=== PATIENT | male | born 1985 | race Caucasian/White ===

== ENCOUNTER → 2017-12-24 11:41 | Outpatient (CLI) | payer OTHER, SELFPAY ==
[2017-12-24 14:00] LABS: Protein, Urine (Random) 8.6 mg/dL (<11.9); Protein:Creat Ratio 314 mg/g CRE (0-200)
[2017-12-24 14:52] LABS: Albumin, Serum 4.2 g/dL (3.2-5.0); BUN 17 mg/dL (7-18); Chloride 104 mmol/L (98-107); Cholesterol 181 mg/dL (200); Creatinine, Serum 1.21 mg/dL (0.70-1.30); EST Glomerular Filtration Rate 73 mL/min (>60); Est Glom Filt Rate - Afr Amer 88 mL/min (>60); Glucose 85 mg/dL (74-106); High Density Lipoprotein 64 mg/dL; Phosphorus 3.2 mg/dL (2.5-4.9); Potassium 4.6 mmol/L (3.5-5.1); Sodium Level 139 mmol/L (136-145); Triglycerides 53 mg/dL; Very Low Density Lipoprotein 11 mg/dL (5-40)
== END ==
PROVIDERS: Family Provider Family Medicine; PCP Family Medicine; Visit Provider Internal Medicine Nephrology
DX: N02.8 Recurrent and persistent hematuria with other morphologic changes (principal); R80.9 Proteinuria, unspecified; Z13.220 Encounter for screening for lipoid disorders
CPT/HCPCS: 36415; 80061; 80069; 82570; 84156

== ENCOUNTER → 2018-08-31 11:26 | Outpatient (CLI) | payer OTHER, SELFPAY ==
[2018-08-31 12:16] LABS: Protein:Creat Ratio 155 mg/g CRE (0-200)
[2018-08-31 12:17] LABS: Albumin, Serum 3.9 g/dL (3.2-5.0); BUN 16 mg/dL (7-18); BUN/Creat Ratio 13.7 RATIO (10-20); Calcium,Total 8.7 mg/dL (8.5-10.1); Chloride 104 mmol/L (98-107); Creatinine, Serum 1.17 mg/dL (0.70-1.30); EST Glomerular Filtration Rate 75 mL/min (>60); Est Glom Filt Rate - Afr Amer 91 mL/min (>60); Glucose 61 mg/dL (74-106); Phosphorus 3.8 mg/dL (2.5-4.9); Potassium 4.5 mmol/L (3.5-5.1); Sodium Level 140 mmol/L (136-145)
== END ==
PROVIDERS: Family Provider Family Medicine; PCP Family Medicine; Referring Provider Internal Medicine Nephrology; Visit Provider Internal Medicine Nephrology
DX: N02.8 Recurrent and persistent hematuria with other morphologic changes (principal)
CPT/HCPCS: 36415; 80069; 82570; 84156

== ENCOUNTER → 2018-11-11 15:14 | Outpatient (CLI) | payer OTHER, SELFPAY ==
[2018-11-11 19:19] LABS: Protein:Creat Ratio 132 mg/g CRE (0-200)
== END ==
PROVIDERS: Family Provider Family Medicine; PCP Family Medicine; Referring Provider Internal Medicine Nephrology; Visit Provider Internal Medicine Nephrology
DX: R80.9 Proteinuria, unspecified (principal)
CPT/HCPCS: 82570; 84156

== ENCOUNTER → 2019-01-09 09:01 | Outpatient (CLI) | payer OTHER, SELFPAY ==
[2019-01-09 10:39] LABS: Protein, Urine (Random) 19.7 mg/dL (<11.9); Protein:Creat Ratio 176 mg/g CRE (0-200)
== END ==
PROVIDERS: Family Provider Family Medicine; PCP Family Medicine; Referring Provider Internal Medicine Nephrology; Visit Provider Internal Medicine Nephrology
DX: R80.9 Proteinuria, unspecified (principal)
CPT/HCPCS: 82570; 84156

== ENCOUNTER → 2019-03-05 15:46 | Outpatient (CLI) | payer OTHER, SELFPAY ==
[2019-03-05 17:01] LABS: Albumin, Serum 3.8 g/dL (3.2-5.0); BUN 17 mg/dL (7-18); BUN/Creat Ratio 13.9 RATIO (10-20); Calcium,Total 8.7 mg/dL (8.5-10.1); Chloride 103 mmol/L (98-107); Creatinine, Serum 1.22 mg/dL (0.70-1.30); EST Glomerular Filtration Rate 72 mL/min (>60); Est Glom Filt Rate - Afr Amer 87 mL/min (>60); Glucose 104 mg/dL (74-106); Phosphorus 4.6 mg/dL (2.5-4.9); Potassium 3.7 mmol/L (3.5-5.1); Sodium Level 138 mmol/L (136-145)
[2019-03-05 17:03] LABS: Protein, Urine (Random) 10.7 mg/dL (<11.9); Protein:Creat Ratio 207 mg/g CRE (0-200)
== END ==
PROVIDERS: Family Provider Family Medicine; PCP Family Medicine; Visit Provider Internal Medicine Nephrology
DX: N02.8 Recurrent and persistent hematuria with other morphologic changes (principal); R80.9 Proteinuria, unspecified
CPT/HCPCS: 36415; 80069; 82570; 84156

== ENCOUNTER 2019-07-25 13:20 | Outpatient (RCR) | payer OTHER, SELFPAY ==
[2019-07-25 14:37] LABS: Protein, Urine (Random) 43.7 mg/dL (<11.9); Protein:Creat Ratio 412 mg/g CRE (0-200)
== END 2019-07-25 18:00 | disposition home or self-care (01) ==
LOC: LAB 13:20
PROVIDERS: Family Provider Family Medicine; PCP Family Medicine; Referring Provider Internal Medicine Nephrology; Visit Provider Internal Medicine Nephrology
DX: N02.8 Recurrent and persistent hematuria with other morphologic changes (principal)
CPT/HCPCS: 82570; 84156

== ENCOUNTER → 2019-12-11 14:36 | Outpatient (CLI) | payer OTHER, SELFPAY ==
[2019-12-11 15:32] LABS: Albumin, Serum 4.1 g/dL (3.2-5.0); BUN 14 mg/dL (7-18); BUN/Creat Ratio 12.5 RATIO (10-20); Chloride 101 mmol/L (98-107); Creatinine, Serum 1.12 mg/dL (0.70-1.30); EST Glomerular Filtration Rate 79 mL/min (>60); Est Glom Filt Rate - Afr Amer 95 mL/min (>60); Glucose 85 mg/dL (74-106); Phosphorus 3.5 mg/dL (2.5-4.9); Potassium 4.3 mmol/L (3.5-5.1); Sodium Level 137 mmol/L (136-145)
== END ==
LOC: LAB.FUTURE 14:38 → LAB 12-12 06:45
PROVIDERS: PCP Family Medicine; Referring Provider Internal Medicine Nephrology; Visit Provider Internal Medicine Nephrology
DX: N02.8 Recurrent and persistent hematuria with other morphologic changes (principal)
CPT/HCPCS: 36415; 80069

== ENCOUNTER → 2019-12-16 16:48 | Outpatient (CLI) | payer OTHER, SELFPAY ==
[2019-12-16 17:31] LABS: Protein:Creat Ratio 252 mg/g CRE (0-200)
== END ==
PROVIDERS: PCP Family Medicine; Referring Provider Internal Medicine Nephrology; Visit Provider Internal Medicine Nephrology
DX: N02.8 Recurrent and persistent hematuria with other morphologic changes (principal)
CPT/HCPCS: 82570; 84156

== ENCOUNTER → 2020-07-13 13:18 | Outpatient (CLI) | payer OTHER, SELFPAY ==
[2020-07-13 14:10] LABS: Protein, Urine (Random) 7.3 mg/dL (<11.9); Protein:Creat Ratio 160 mg/g CRE (0-200)
== END ==
PROVIDERS: PCP Family Medicine; Referring Provider Internal Medicine Nephrology; Visit Provider Internal Medicine Nephrology
DX: N02.8 Recurrent and persistent hematuria with other morphologic changes (principal)
CPT/HCPCS: 82570; 84156

== ENCOUNTER → 2021-01-21 | Outpatient (CLI) | payer OTHER, SELFPAY ==
[2021-01-21 05:53] VITALS: BMI 24.0
--- NOTE | 2021-01-21 14:30 | VAS_PTH ---
PATIENT: TEJAS PETER LOC: [facility] U#:[id number] AGE/SX: 35/M ROOM: RE01/21/[address]: Dr. Drew Umanzor MD : 1985 BED: DIS: 01/21/2021 SPEC #: [id number] RECD: 01/21/21 15:33 STATUS: CATARINO REMiesha #: [id number] LISA: 01/21/21 14:[address]: Drew Umanzor DEPT: SURGICAL PATHOLOGY RECD BY: Maria Esther Gomez ENTERED: 01/24/21 08:54 SP TYPE: VAS OTHR DR: Dr. Sandip Olson MD Tissues: A - Vas deferens, NOS B - Vas deferens, NOS Procedures: Surgery Specimen Level II HEADER OPERATION: Bilateral partial vasectomy PRE-OP DIAGNOSIS: Sterilization TISSUE SUBMITTED: A ? Right vas deferens, B ? Left vas deferens MICROSCOPIC DIAGNOSIS A. Right vas deferens, partial vasectomy: Completely transected segment of vas deferens, no pathologic diagnosis. B. Left vas deferens, partial vasectomy: Completely transected segment of vas deferens, no pathologic diagnosis. MARTA:ad 01/25/2021 MICROSCOPIC DESCRIPTION Slides are reviewed. GROSS DESCRIPTION A - Received is one container designated right vas deferens. The specimen consists of a tubular segment of still soft tissue measuring 1.5 cm in length and 0.2 cm in diameter. The entire specimen is submitted in one cassette. It will be sectioned at the time of embedding. B - Received is one container designated left vas deferens. The specimen consists of a tubular segment of still soft tissue measuring 0.8 cm in length and 0.2 cm in diameter. The entire specimen is submitted in one cassette. It will be sectioned at the time of embedding. / MARTA:ad 01/24/21 TC:4 CPT: 11701 x2
== END | disposition home or self-care (01) ==
LOC: LABSPEC 16:08
PROVIDERS: PCP Family Medicine; Referring Provider Surgery; Visit Provider Surgery
DX: Z30.2 Encounter for sterilization (principal)
CPT/HCPCS: 88302

== ENCOUNTER → 2021-03-01 | Outpatient (CLI) | payer OTHER, SELFPAY ==
[2021-01-21 05:53] VITALS: BMI 24.0
[2021-03-02 13:47] LABS: Semen Analysis Post Vas REVIEWED
== END | disposition home or self-care (01) ==
PROVIDERS: PCP Family Medicine; Referring Provider Surgery; Visit Provider Surgery
DX: Z30.2 Encounter for sterilization (principal)
CPT/HCPCS: 89321

== ENCOUNTER → 2021-03-31 | Outpatient (CLI) | payer OTHER, SELFPAY ==
[2021-01-21 05:53] VITALS: BMI 24.0
[2021-04-01 12:28] LABS: Semen Analysis Post Vas ABSENT
== END | disposition home or self-care (01) ==
LOC: LABSPEC 07:53
PROVIDERS: PCP Family Medicine; Visit Provider Surgery
DX: Z30.2 Encounter for sterilization (principal)
CPT/HCPCS: 89321

== ENCOUNTER → 2021-05-06 | Outpatient (CLI) | payer OTHER, SELFPAY ==
[2021-05-09 12:33] LABS: Semen Analysis Post Vas REVIEWED
== END | disposition home or self-care (01) ==
LOC: LABSPEC 09:03
PROVIDERS: PCP Family Medicine; Visit Provider Surgery
DX: Z30.2 Encounter for sterilization (principal)
CPT/HCPCS: 89321

== ENCOUNTER 2021-10-10 12:59 | Outpatient (CLI) | payer BC, SELFPAY ==
[2021-10-10 13:53] LABS: Protein, Urine (Random) 18.5 mg/dL (<11.9); Protein:Creat Ratio 272 mg/g CRE (0-200)
[2021-10-10 14:00] LABS: BUN 17 mg/dL (7-18); BUN/Creat Ratio 15.2 RATIO (10-20); Calcium,Total 8.8 mg/dL (8.5-10.1); Chloride 101 mmol/L (98-107); Creatinine, Serum 1.12 mg/dL (0.70-1.30); EST Glomerular Filtration Rate 78 mL/min (>60); Est Glom Filt Rate - Afr Amer 94 mL/min (>60); Glucose 96 mg/dL (74-106); Phosphorus 3.1 mg/dL (2.5-4.9); Potassium 4.1 mmol/L (3.5-5.1); Sodium Level 138 mmol/L (136-145)
== END 2021-10-10 23:59 | disposition home or self-care (01) ==
LOC: LAB 13:04
PROVIDERS: PCP Family Medicine; Referring Provider Internal Medicine Nephrology; Visit Provider Internal Medicine Nephrology
DX: N02.8 Recurrent and persistent hematuria with other morphologic changes (principal)
CPT/HCPCS: 36415; 80069; 82570; 84156

== ENCOUNTER → 2022-11-04 | Outpatient (CLI) | payer BC, SELFPAY ==
[2022-11-04 12:27] LABS: Protein, Urine (Random) 12.4 mg/dL (<11.9); Protein:Creat Ratio 111 mg/g CRE (0-200)
[2022-11-04 13:00] LABS: Albumin, Serum 3.7 g/dL (3.2-5.0); BUN 18 mg/dL (7-18); BUN/Creat Ratio 14.2 RATIO (10-20); Calcium,Total 8.9 mg/dL (8.5-10.1); Chloride 102 mmol/L (98-107); Creatinine, Serum 1.27 mg/dL (0.70-1.30); EST Glomerular Filtration Rate 67 mL/min (>60); Est Glom Filt Rate - Afr Amer 81 mL/min (>60); Glucose 95 mg/dL (74-106); Phosphorus 2.7 mg/dL (2.5-4.9); Sodium Level 141 mmol/L (136-145)
== END | disposition home or self-care (01) ==
LOC: LAB 11:46
PROVIDERS: PCP Family Medicine; Visit Provider Internal Medicine Nephrology
DX: N02.8 Recurrent and persistent hematuria with other morphologic changes (principal); R80.9 Proteinuria, unspecified
CPT/HCPCS: 36415; 80069; 82570; 84156

== ENCOUNTER → 2023-09-08 | Outpatient (CLI) | payer OTHER, SELFPAY ==
[2023-09-08 11:33] LABS: Cholesterol 228 mg/dL (200); High Density Lipoprotein 71 mg/dL; Triglycerides 61 mg/dL; Very Low Density Lipoprotein 12 mg/dL (5-40)
== END | disposition home or self-care (01) ==
PROVIDERS: PCP Family Medicine; Referring Provider Family Medicine; Visit Provider Family Medicine
DX: Z13.220 Encounter for screening for lipoid disorders (principal)
CPT/HCPCS: 36415; 80061

== ENCOUNTER → 2023-10-11 | Outpatient (CLI) | payer OTHER, SELFPAY ==
[2023-10-11 07:52] LABS: Protein, Urine (Random) 39.1 mg/dL (<11.9); Protein:Creat Ratio 152 mg/g CRE (0-200)
[2023-10-11 07:55] LABS: Albumin, Serum 3.8 g/dL (3.2-5.0); BUN 16 mg/dL (7-18); BUN/Creat Ratio 12.5 RATIO (10-20); Calcium,Total 8.9 mg/dL (8.5-10.1); Chloride 109 mmol/L (98-107); Creatinine, Serum 1.28 mg/dL (0.70-1.30); EST Glomerular Filtration Rate 66 mL/min (>60); Est Glom Filt Rate - Afr Amer 80 mL/min (>60); Glucose 97 mg/dL (74-106); Potassium 4.2 mmol/L (3.5-5.1); Sodium Level 140 mmol/L (136-145)
== END | disposition home or self-care (01) ==
LOC: LAB 07:12
PROVIDERS: PCP Family Medicine; Referring Provider Internal Medicine Nephrology; Visit Provider Internal Medicine Nephrology
DX: N02.8 Recurrent and persistent hematuria with other morphologic changes (principal); R80.9 Proteinuria, unspecified
CPT/HCPCS: 36415; 80069; 82570; 84156

== ENCOUNTER → 2023-12-11 | Outpatient (CLI) | payer OTHER, SELFPAY ==
[2023-12-11 09:36] LABS: Protein, Urine (Random) 22.2 mg/dL (<11.9); Protein:Creat Ratio 116 mg/g CRE (0-200)
== END | disposition home or self-care (01) ==
LOC: LAB 07:32
PROVIDERS: PCP Family Medicine; Referring Provider Internal Medicine Nephrology; Visit Provider Internal Medicine Nephrology
DX: R80.9 Proteinuria, unspecified (principal)
CPT/HCPCS: 82570; 84156

== ENCOUNTER → 2024-02-12 | Outpatient (CLI) | payer OTHER, SELFPAY ==
--- NOTE | 2024-02-12 17:09 | RAD_ITS ---
STUDY: X-RAY - LEFT HAND, ATTENTION THIRD FINGER REASON FOR EXAM: Male, 38 years old. Injury DIP of 3rd left finger. TECHNIQUE: 3 views of the left third finger were obtained. COMPARISON: None. FINDINGS: Normal metacarpal head. Normal metacarpophalangeal joint. Normal proximal phalanx. Normal middle phalanx. There is a comminuted fracture of the tuft of the third distal phalanx. Normal proximal interphalangeal joint. Normal distal interphalangeal joint. RAD/Finger(s) Min 2 Views IMPRESSION: Comminuted fracture of the tuft of the third distal phalanx. Electronically Signed: Chang Thurman MD at 12:19 EDT ,
== END | disposition home or self-care (01) ==
LOC: MTRAD 16:45
PROVIDERS: PCP Family Medicine; Referring Provider Family Medicine; Visit Provider Family Medicine
DX: M79.645 Pain in left finger(s) (principal)
CPT/HCPCS: 73140

== ENCOUNTER 2024-02-15 16:35 | Outpatient (RCR) | payer OTHER, SELFPAY ==
[2024-02-15 17:26] LABS: Protein, Urine (Random) 18.1 mg/dL (<11.9); Protein:Creat Ratio 233 mg/g CRE (0-200)
== END 2024-02-15 18:00 | disposition home or self-care (01) ==
LOC: LAB 16:35
PROVIDERS: PCP Family Medicine; Referring Provider Internal Medicine Nephrology; Visit Provider Internal Medicine Nephrology
DX: R80.9 Proteinuria, unspecified (principal)
CPT/HCPCS: 82570; 84156

== ENCOUNTER → 2024-03-27 | Outpatient (CLI) | payer OTHER, SELFPAY ==
--- NOTE | 2024-03-27 09:37 | RAD_ITS ---
EXAM: XR LUMBOSACRAL SPINE, 4 OR 5 VIEWS CLINICAL INDICATION: R HIP/BUTTOCK PAIN -- COPY DR LEN ALEXANDRE TECHNIQUE: Frontal, lateral and bilateral oblique views of the lumbar spine. COMPARISON: No relevant prior studies available. FINDINGS: VERTEBRAE: Mild dextroscoliosis. Preserved vertebral body height. No fracture. No spondylolisthesis. No significant facet arthropathy. DISC SPACES: No acute findings. Disc spaces are maintained. GASTROINTESTINAL TRACT: Unremarkable as visualized. Included bowel gas pattern is non-obstructive. RAD/L/S Spine Min 4 Views IMPRESSION: Mild dextroscoliosis. No acute abnormality. Electronically Signed: Daniel Gage MD at 2:59 EDT ,
== END | disposition home or self-care (01) ==
PROVIDERS: PCP Family Medicine; Referring Provider Family Medicine; Visit Provider Family Medicine
DX: M54.50 Low back pain, unspecified (principal)
CPT/HCPCS: 72110

== ENCOUNTER 2024-04-14 13:02 | Outpatient (RCR) | payer OTHER, SELFPAY ==
[2024-04-14 13:43] LABS: Protein:Creat Ratio 230 mg/g CRE (0-200)
== END 2024-04-14 18:00 | disposition home or self-care (01) ==
LOC: LAB 13:02
PROVIDERS: PCP Family Medicine; Referring Provider Internal Medicine Nephrology; Visit Provider Internal Medicine Nephrology
DX: R80.9 Proteinuria, unspecified (principal)
CPT/HCPCS: 82570; 84156

== ENCOUNTER 2024-05-08 23:46 | Emergency (ER) | payer OTHER, SELFPAY ==
[2024-05-08 23:46] VITALS: BP 125/65; PULSE 80; RESP 18; TEMP 36.7; O2SAT 98; BMI 23.7
--- NOTE | 2024-05-09 00:34 | EDS_ITS ---
HPI History of Present Illness Chief Complaint: Back Informant: patient and spouse/S.O. Narrative Narrative: Patient is a 38-year-old male with past medical history of depression and IgA nephropathy. He states he has been dealing with right sided low back pain over the past month. He denies any trauma or excessive activity he denies any dysuria or hematuria he denies any loss of bowel or bladder control or IV drug use. He reports that he has an appointment with an orthopedic surgeon in the next 1 to 2 days but this morning after getting dressed had increased pain to the right low back that radiates down the right leg. He states he has been taking his muscle relaxers and xrvd-spt-vbcuvat medications without any symptom improvement and secondary to the persistent pain comes in for evaluation [facility] Medical History Encounter for sterilization Home Medications ?Medication ?Instructions ?Recorded ?Last Taken ?Type escitalopram oxalate 10 mg tablet 10 mg PO DAILY 12/20/20 Unknown History levetiracetam 500 mg tablet 500 mg PO BID 12/20/20 Unknown History lisinopril 20 mg tablet 20 mg PO DAILY 12/20/20 Unknown History losartan 50 mg tablet 50 mg PO DAILY 12/20/20 Unknown History tizanidine 4 mg tablet 4 mg PO Q8H PRN PRN muscle spasm 05/08/24 Unknown History gabapentin 300 mg capsule 300 mg PO TID 30 days #90 caps 05/09/24 Unknown Rx oxycodone-acetaminophen 5 mg-325 1 tab PO Q6H PRN pain 3 days #12 05/09/24 Unknown Rx mg tablet (Percocet) tabs Allergy/AdvReac Type Severity Reaction Status Date / Time No Known Allergies Allergy Verified 05/08/24 23:48 Surgical History History of splenectomy Hx of craniotomy Social History Smoking Status: Never smoker ROS ROS ED Constitutional Constitutional ED: Denies chills or fever(s) ENT ENT ED: Denies sore throat Cardiovascular Cardiovascular: Denies chest pain Respiratory/Chest Respiratory/Chest: Denies cough or dyspnea Gastrointestinal Gastrointestinal: Denies abdominal pain, diarrhea, nausea or vomiting Genitourinary Genitourinary ED: Denies dysuria, hematuria or urinary frequency Musculoskeletal Musculoskeletal: Reports back pain Integumentary Denies rash Neurologic Neurologic: Denies headache(s), paresthesias or weakness Hematologic/Lymphatic Hematologic/Lymphatic: Denies easy bleeding or easy bruising EXAM Physical Exam Const Vital Signs: 05/08/24 23:46 05/09/24 01:01 Temperature 98.1 F 98.0 F Temperature Source Oral Pulse Rate 80 58 L Respiratory Rate 18 18 Blood Pressure 125/65 H 105/61 Blood Pressure Mean 85 75 Pulse Ox 98 98 Oxygen Delivery Method Room Air Positive well nourished and well developed General Appearance ED: well developed; Negative for pallor HEENT HEENT Narrative: Normocephalic atraumatic Eyes PERRL and EOMs intact bilaterally General Eye ED: Negative for scleral icterus Neck supple Neck Narrative: No nuchal rigidity or meningeal signs Resp normal respiratory effort and clear to auscultation bilaterally Cardio regular rate and regular rhythm Rate: other Other Details: Heart is regular rate and rhythm without murmurs rubs or gallops Radial and carotid pulses are equal and symmetric GI normal to inspection, nondistended, normoactive bowel sounds, non-tender, non- distended and no masses Auscultation: normoactive bowel sounds Palpation: soft Back/Spine Back/Spine Narrative: No bony deformity or step-off of the thoracic or lumbar spine no midline tenderness to palpation No pain with palpation of the sacroiliac joint No saddle anesthesia. No clonus or Babinski. Patient does have a straight leg raise that is positive in approximately 60 degrees on right. Also patellar reflex on right is decreased at plus 1 out of 4 while the left is normal at plus 2 out of 4. Extremity normal to inspection Neuro oriented x3 and CN's II-XII intact bilaterally Sensorium / Orientation: alert Psych mental status grossly normal Skin no rashes or lesions noted and no wounds Skin Narrative: No overlying soft tissue changes to suggest trauma or infection General Skin Exam: Negative for jaundice or pallor MDM MDM MDM Narrative Medical decision making narrative: Patient arrived to the ER with stable vitals. He denied any loss of bowel or bladder control or IV drug use in the right little concern for cauda equina syndrome or an epidural abscess. With pain rating down the right leg towards the ankle/toes there is concern for sciatica versus lumbar radiculopathy which could be caused by spinal stenosis versus herniated disc versus foraminal stenosis. The patient had an x-ray performed last month with was reviewed and showed just mild dextroscoliosis but otherwise no bony issues. At this time he does not have overlying soft tissue changes to suggest shingles/infection and he does not have urinary symptoms that would go against UTI or pyelonephritis. History and exam is consistent with lumbar radiculopathy and therefore he will be given symptomatic medication and can follow-up with orthopedics to discuss need for MRI to further diagnose the cause of his symptoms. However at this time he does not have signs of neuro claudication or potential blood clot or signs of infection is otherwise safe for discharge History & Record Review Discussion w/independent historian: Patient and Significant other Discharge Plan Triage Chief Complaint: Back ED Provider: Norberto Loya Dx/Rx/DC Orders Clinical Impression: Acute lumbar radiculopathy, Depression Instructions: Understanding Lumbar Radiculopathy Prescriptions: New gabapentin 300 mg capsule 300 mg PO TID 30 Days Qty: 90 0RF oxycodone-acetaminophen [Percocet] 5-325 mg tablet 1 tab PO Q6H PRN (Reason: pain) 3 Days Qty: 12 0RF No Action levetiracetam 500 mg tablet 500 mg PO BID escitalopram oxalate 10 mg tablet 10 mg PO DAILY Patient Comments: TAKE 1 TABLET BY MOUTH EVERY MORNING lisinopril 20 mg tablet 20 mg PO DAILY losartan 50 mg tablet 50 mg PO DAILY tizanidine 4 mg tablet 4 mg PO Q8H PRN PRN (Reason: muscle spasm) Primary Care Provider: Sandip Olson Referrals: Sandip Olson MD [Primary Care Provider] - Activity Restrictions/Additional Instructions: Please continue your muscle relaxer but add the gabapentin and Percocet for improved pain control. Keep your appointment with orthopedics to discuss potential MRI to further assess the cause of your back pain and return to the ER should you have any further concerns Print Language: Omani Disposition Disposition: Home, Self Care Discharge Date/Time: 05/09/24 01:30
[2024-05-09] MEDS: Gabapentin 300 MG Capsule PO (00:53)
[2024-05-09] MEDS: oxyCODONE 5 MG Tablet 10 MG PO (00:53)
[2024-05-09] MEDS: Ondansetron ODT 4 MG Tablet PO (00:54)
[2024-05-09] MEDS: Morphine 4 MG/ML Syringe 8 MG IM (00:54)
[2024-05-09] MEDS: dexAMETHasone 10 MG/ML Vial IM (00:54)
[2024-05-09 01:01] VITALS: BP 105/61; PULSE 58; RESP 18; TEMP 36.7; O2SAT 98
== END 2024-05-09 01:30 | disposition home or self-care (01) ==
PROVIDERS: Emergency Provider Emergency Medicine; PCP Family Medicine; Visit Provider Emergency Medicine
DX: M54.16 Radiculopathy, lumbar region (principal); F32.A Depression, unspecified; Z79.899 Other long term (current) drug therapy; Z90.81 Acquired absence of spleen
CPT/HCPCS: 96372; 99283

== ENCOUNTER → 2024-05-29 | Outpatient (CLI) | payer OTHER, SELFPAY ==
--- NOTE | 2024-05-29 12:56 | CT_ITS ---
STUDY: CT LUMBAR SPINE WITH INTRATHECAL CONTRAST (LUMBAR CT MYELOGRAM) REASON FOR EXAM: Male, 38 years old. LUMBAR SCOLIOSIS RADIATION DOSAGE (If Supplied By Facility): CTDIvol = ( 13.82 ) mGy, DLP = ( 432.55 ) mGycm TECHNIQUE: Transaxial images were obtained from the L1 vertebra through the S1 vertebrae, following intrathecal administration of 15 ml of Isovue-M 200 contrast material, performed by Dr. Alvarez. Please refer to this physicians technical notes for procedural details. Coronal and sagittal reconstructions were obtained. Individualized dose optimization techniques were used for this CT. COMPARISON: None. FINDINGS: Normal lumbar lordosis. There is no substantial scoliosis. Normal vertebrae of the lumbar spine. There is dependent layering of contrast material in the distal thecal sac. The conus medullaris terminates in a normal position at the . There is no demonstrated cauda equina nerve root abnormality or intraspinal mass. L1-2: Normal endplates. Normal disc height and morphology. Normal bilateral facet joints. Normal central canal and bilateral lateral recesses. Normal bilateral intervertebral neural foramina. L2-3: Normal endplates. Normal disc height and morphology. Normal bilateral facet joints. There is evidence of a small right paracentral disc herniation causing deformity of the thecal sac anteriorly. There is no evidence of nerve root compression. Recesses. Normal bilateral intervertebral neural foramina. L3-4: Normal endplates. Normal disc height and morphology. Normal bilateral facet joints. Normal central canal and bilateral lateral recesses. Normal bilateral intervertebral neural foramina. L4-5: Normal endplates. Normal disc height and morphology. Normal bilateral facet joints. Normal central canal and bilateral lateral recesses. Normal bilateral intervertebral neural foramina. L5-S1: Normal endplates. Normal disc height and morphology. Normal bilateral facet joints. Normal central canal and bilateral lateral recesses. Normal bilateral intervertebral neural foramina. Normal visualized sacroiliac joints. Normal visualized paraspinous soft tissue structures. CT/Spine Lumbar WITH Contrast IMPRESSION: Small right paracentral disc herniation causing deformity of the thecal sac anteriorly at the L2-L3 level. Electronically Signed: Dionte Alvarez MD at 15:22 EDT ,
[2024-05-29 13:15] VITALS: BP 108/60; PULSE 63; RESP 16; TEMP 36.3; O2SAT 100; BMI 23.1
--- NOTE | 2024-05-29 13:15 | RAD_ITS ---
PROCEDURE: LUMBAR MYELOGRAM DATE OF EXAMINATION: May 29, 2024. INDICATION: Male, 38 years old. Low back pain. PHYSICIAN: Dionte Alvarez M.D. CONSENT: The patient''s history and physical findings were reviewed. The lumbar myelogram procedure was discussed with the patient prior to signing a consent. SEDATION: Local anesthesia with 3 mL of 1% lidocaine was used. FLUOROSCOPY TIME (if supplied): (1:21) minutes/seconds. 65.8 mGy. 4 images were obtained. Injection Information: Number of images obtained: TECHNIQUE: Digital fluoroscopy was used to identify a safe approach for the lumbar myelogram. The back was prepped and draped in usual fashion. Local anesthesia was utilized. Under fluoroscopic guidance a 22-gauge spinal needle was inserted into the spinal canal at the L2-L3 level. Clear spinal fluid was seen with a sample sent to the laboratory. 15 mL of Isovue 200 M was injected into the spinal canal. There is good opacification of the spinal fluid. The nerve root sheaths are asymmetrically identified. Mild central posterior epidural defect seen at the L2-L3 level suggestive of a small disc. RAD/Lumbar Myelogram IMPRESSION: Minimal anterior extradural defect at the L2-L3 level. Electronically Signed: Dionte Alvarez MD at 15:19 EDT ,
[2024-05-29] MEDS: Lidocaine 2% (5ml sdv) 5 ML VIAL.MPF INFILT (13:30)
[2024-05-29 13:51] VITALS: BP 112/62; PULSE 68; RESP 16; O2SAT 99
[2024-05-29 14:25] VITALS: BP 116/63; PULSE 67; RESP 16; O2SAT 99
== END | disposition home or self-care (01) ==
PROVIDERS: PCP Family Medicine; Referring Provider Orthopaedic Surgery; Visit Provider Orthopaedic Surgery
DX: M51.369 Other intervertebral disc degeneration, lumbar region without mention of lumbar back pain or lower extremity pain (principal); M48.07 Spinal stenosis, lumbosacral region; M54.16 Radiculopathy, lumbar region
CPT/HCPCS: 62304; 72132; Q9965

== ENCOUNTER 2024-06-14 11:43 | Outpatient (RCR) | payer OTHER, SELFPAY ==
[2024-06-14 12:28] LABS: Protein, Urine (Random) 14.7 mg/dL (<11.9); Protein:Creat Ratio 128 mg/g CRE (0-200)
== END 2024-06-14 18:00 | disposition home or self-care (01) ==
LOC: LAB 11:43
PROVIDERS: PCP Family Medicine; Referring Provider Internal Medicine Nephrology; Visit Provider Internal Medicine Nephrology
DX: R80.9 Proteinuria, unspecified (principal)
CPT/HCPCS: 82570; 84156

== ENCOUNTER 2024-07-02 07:00 | Outpatient (RCR) | payer OTHER, SELFPAY ==
--- NOTE | 2024-05-27 08:01 | HP.PTEVAL ---
Patient's Visit Information Visit Information Visit Information: TEJAS PTEER is a 38 year old M referred to Physical Therapy by Dr. Sandip Olson MD with a diagnosis of R LBP, Glut weakness, ant rotated pelvis. Date of Evaluation: 05/27/24 Physical Therapist: SHABBIR Marquez Visit Plan Frequency: 1x/Week Duration: 2 Months Plan: 1X/ week per pt request due to high self pay for centralization of sx, neutral spine core stability, postural exercises, R glut and hip strength with HEP HEP: supine 90/90 nerve root stretch and prone press up with pt sag X 30 4 X/ day Subjective Subjective: Pt has some issue on the R L4/L5. He first injured it in [id number]. He will occ have some back pain and would go to Chiro. This summer he injured it again and seen the Dr 5 times. He saw his Dr and was Dx with glut strain and then saw Dr Olson and said he has glut weakness and was given exercises and referred to PT. Third week in Apr he was bending over and had 10/10 pain down his butt and down the R leg and he could not move to relieve the pain. He was trying to sleep that night and could not and went to the ER and got pain relievers. He saw Dr Monaco at [facility]. He has a CT on the . He has no LBP now but he continues to have pain down his R butt and down to the foot. He is on Ladonna petin and on 10 day steroid (he felt great on it) and had now on Meloxicam but he has a pre existing kidney issue. He has N&T in his R foot and that comes and goes. Pain LBP: Pain Intensity (Out of 10): 0 R buttock pain: Pain Intensity (Out of 10): 6 R leg pain: Pain Intensity (Out of 10): 3 Objective Objective: Gait: walks with normal gait pattern. He is able to walk on heels and toes Trunk AROM: Flexion 50%, Ext 50%, SB B 75% and Rot B 75% LE MMT: R hip flex 21.9 and L 19.1 R knee ext 29.3 and L 30.5 R knee flex 12.3 and L 14.1 B supine hip abd/add 4/5 B R hip ext 16 and L 19.1 + SLR on the R for pain and tightness and just tightness on the L +tightness on the R piriformis compared to the L Prone lying no pain, BYRON X 1 min no pain, Prone press ups X 10 (pain in back only when up in press up but when comes back down to flat he has no pain). Repeated Prone Press ups X 10 with pt belly sag with no increase in sx Supine R leg nerve root flossing with hip at 90 degrees flexion X 30 and got better with each time. Patellar DTR's 0/3 Balance/Special Test Scores Oswestry Low Back Score: 11 Goals Goal 1:: I HEP Goal Time Frame: 6-8 Weeks Goal 2:: Centralize LB Sx Goal Time Frame: 6-8 Weeks Goal 3:: Be able to go through workday without having back and R leg pain Goal Time Frame: 6-8 Weeks Goal 4:: Increase Hip ext strength (at the time of the eval: R hip ext 16 and L 19.1). Goal Time Frame: 6-8 Weeks Goal 5:: Decrease pain with R SLR Goal Time Frame: 6-8 Weeks Rehabilitation Potential Rehabilitation Potential: Good Anticipated Interventions Patient/Client Instruction: Educate patient on: Condition and Plan of Care For the Purpose of:: To decrease pain, To decrease swelling/inflammation, To increase ROM, To improve nutrient delivery to tissue, To improve muscle performance and motor function, To improve ability to perform ADL's, To improve performance and independence with ADL's, To decrease level of supervision to perform tasks, To improve ability of physical actions for home/community/work/leisure, To improve gait and locomotor functions, To improve health of tissue, To decrease soft tissue restriction and To increase flexibility/ROM Therapeutic Exercise to Include: Strength training, Body mechanics, Postural training, Flexibilty training, Gait and locomotor training, Active ROM, Dynamic Lumbar Stabilization, Herbert Exercises and Scapular Strength/Stabilization For the Purpose of:: To decrease pain, To increase ROM, To improve nutrient delivery to tissue, To increase oxygenation perfusion, To improve muscle performance and motor function, To improve ability to perform ADL's, To increase tolerance to activity/condition/position, To improve performance and independence with ADL's, To decrease level of supervision to perform tasks, To improve ability of physical actions for home/community/work/leisure, To improve gait and locomotor functions, To improve health of tissue, To decrease soft tissue restriction and To increase flexibility/ROM Manual Therapy Techniques to Include: Mobilization, Passive ROM and Soft tissue mobilization For the Purpose of:: To decrease pain, To increase ROM, To increase oxygenation perfusion, To improve ability to perform ADL's, To increase tolerance to activity/condition/position, To improve performance and independence with ADL's, To decrease level of supervision to perform tasks, To improve ability of physical actions for home/community/work/leisure, To improve gait and locomotor functions, To improve health of tissue, To decrease soft tissue restriction, To increase flexibility/ROM and To improve endurance Text: Thank you for the opportunity to evaluate your patient. For Medicare and Medicare HMO plans, please review the plan of care and approve it. It will need to be FAXED BACK to us at [phone] for Medicare purposes. For Medicare only, by signing this I certify the plan of care. Please let me know if there are questions or concerns regarding this plan of care. Physician Signature: Date:
--- NOTE | 2024-08-05 09:50 | HP.PT.NRP ---
Patient Information Patient Information: TEJAS PETER was seen in my office for initial evaluation on 05/27/24. The following Plan of Care was established for this patient: POC Established Initial Frequency: 1x/Week Initial Duration: 2 Months Anticipated Interventions Patient/Client Instruction: Educate patient on: Condition and Plan of Care For the Purpose of:: To decrease pain, To decrease swelling/inflammation, To increase ROM, To improve nutrient delivery to tissue, To improve muscle performance and motor function, To improve ability to perform ADL's, To improve performance and independence with ADL's, To decrease level of supervision to perform tasks, To improve ability of physical actions for home/community/work/leisure, To improve gait and locomotor functions, To improve health of tissue, To decrease soft tissue restriction and To increase flexibility/ROM Therapeutic Exercise to Include: Strength training, Body mechanics, Postural training, Flexibilty training, Gait and locomotor training, Active ROM, Dynamic Lumbar Stabilization, Herbert Exercises and Scapular Strength/Stabilization For the Purpose of:: To decrease pain, To increase ROM, To improve nutrient delivery to tissue, To increase oxygenation perfusion, To improve muscle performance and motor function, To improve ability to perform ADL's, To increase tolerance to activity/condition/position, To improve performance and independence with ADL's, To decrease level of supervision to perform tasks, To improve ability of physical actions for home/community/work/leisure, To improve gait and locomotor functions, To improve health of tissue, To decrease soft tissue restriction and To increase flexibility/ROM Manual Therapy Techniques to Include: Mobilization, Passive ROM and Soft tissue mobilization For the Purpose of:: To decrease pain, To increase ROM, To increase oxygenation perfusion, To improve ability to perform ADL's, To increase tolerance to activity/condition/position, To improve performance and independence with ADL's, To decrease level of supervision to perform tasks, To improve ability of physical actions for home/community/work/leisure, To improve gait and locomotor functions, To improve health of tissue, To decrease soft tissue restriction, To increase flexibility/ROM and To improve endurance Last Seen Last Seen: This patient was last seen in our office 07/02/24. Pertinent comments regarding their Physical therapy will appear below: ANTONIO PT At this point I will be discontinuing this patient from physical therapy. I would be happy to see this patient again in the future if found appropriate by the physician. Thank you! Chanel Rider, MPT Balance/Gait/Functional tests Balance/Special Test Scores Oswestry Low Back Score: 11
== END 2024-07-02 19:00 | disposition home or self-care (01) ==
LOC: PT 07:00
PROVIDERS: PCP Family Medicine; Referring Provider Family Medicine; Visit Provider Family Medicine
DX: M54.50 Low back pain, unspecified (principal); M62.81 Muscle weakness (generalized)
CPT/HCPCS: 97110; 97161

== ENCOUNTER → 2024-07-31 | Outpatient (CLI) | payer OTHER, SELFPAY ==
[2024-07-31 07:24] LABS: Albumin, Serum 3.9 g/dL (3.2-5.0); BUN 14 mg/dL (7-18); BUN/Creat Ratio 11.6 RATIO (10-20); Calcium,Total 9.3 mg/dL (8.5-10.1); Chloride 106 mmol/L (98-107); Creatinine, Serum 1.21 mg/dL (0.70-1.30); EST Glomerular Filtration Rate 70 mL/min (>60); Est Glom Filt Rate - Afr Amer 85 mL/min (>60); Glucose 93 mg/dL (74-106); Phosphorus 4.7 mg/dL (2.5-4.9); Potassium 4.2 mmol/L (3.5-5.1); Protein, Urine (Random) 15.3 mg/dL (<11.9); Protein:Creat Ratio 107 mg/g CRE (0-200); Sodium Level 141 mmol/L (136-145)
== END | disposition home or self-care (01) ==
LOC: LAB 06:38
PROVIDERS: PCP Family Medicine; Referring Provider Internal Medicine Nephrology; Visit Provider Internal Medicine Nephrology
DX: N02.8 Recurrent and persistent hematuria with other morphologic changes (principal)
CPT/HCPCS: 36415; 80069; 82570; 84156

== ENCOUNTER 2024-09-13 08:48 | Outpatient (RCR) | payer OTHER, SELFPAY ==
[2024-09-13 09:48] LABS: Protein, Urine (Random) 26.3 mg/dL (<11.9); Protein:Creat Ratio 196 mg/g CRE (0-200)
== END 2024-09-13 18:00 | disposition home or self-care (01) ==
LOC: LAB 08:48
PROVIDERS: PCP Family Medicine; Referring Provider Internal Medicine Nephrology; Visit Provider Internal Medicine Nephrology
DX: R80.9 Proteinuria, unspecified (principal)
CPT/HCPCS: 82570; 84156

== ENCOUNTER → 2024-11-08 | Outpatient (CLI) | payer OTHER, SELFPAY ==
[2024-11-08 16:54] LABS: Protein, Urine (Random) 19.1 mg/dL (0.0-12.0); Protein:Creat Ratio 291 mg/g CRE (0-200)
== END | disposition home or self-care (01) ==
LOC: LAB 11:45
PROVIDERS: PCP Family Medicine; Referring Provider Internal Medicine Nephrology; Visit Provider Internal Medicine Nephrology
DX: R80.9 Proteinuria, unspecified (principal)
CPT/HCPCS: 82570; 84156

== ENCOUNTER → 2025-01-01 08:40 | Outpatient (RCR) | payer OTHER, SELFPAY ==
[2025-01-01 15:55] LABS: Protein, Urine (Random) 34.1 mg/dL (0.0-12.0); Protein:Creat Ratio 316 mg/g CRE (0-200)
== END ==
LOC: LAB 08:40
PROVIDERS: PCP Family Medicine; Referring Provider Internal Medicine Nephrology; Visit Provider Internal Medicine Nephrology
DX: R80.9 Proteinuria, unspecified (principal)
CPT/HCPCS: 82570; 84156

== ENCOUNTER 2025-04-29 16:23 | Outpatient (RCR) | payer OTHER, SELFPAY ==
[2025-04-29 17:34] LABS: Creatinine, Urine (random) 79.00 mg/dL (39.00-259.00); Protein, Urine (Random) 28.0 mg/dL (0.0-12.0); Protein:Creat Ratio 354 mg/g CRE (0-200)
== END 2025-05-19 18:00 | disposition home or self-care (01) ==
LOC: LAB 16:23
PROVIDERS: PCP Family Medicine; Referring Provider Internal Medicine Nephrology; Visit Provider Internal Medicine Nephrology
DX: R80.9 Proteinuria, unspecified (principal)
CPT/HCPCS: 82570; 84156

== ENCOUNTER → 2025-05-28 | Outpatient (CLI) | payer OTHER, SELFPAY ==
[2025-05-28 12:34] LABS: Albumin, Serum 4.2 g/dL (3.5-5.0); Anion Gap 9 (5-15); BUN 11 mg/dL (4-19); BUN/Creat Ratio 9.9 RATIO (10-20); Calcium,Total 9.2 mg/dL (7.6-11.0); Carbon Dioxide 27.2 mmol/L (21.0-32.0); Chloride 103 mmol/L (98-108); Glucose 90 mg/dL (70-99); Potassium 4.5 mmol/L (3.3-5.1)
== END | disposition home or self-care (01) ==
LOC: POLAB3 10:36
PROVIDERS: PCP Family Medicine; Visit Provider Internal Medicine Nephrology
DX: N02.8 Recurrent and persistent hematuria with other morphologic changes (principal); R80.9 Proteinuria, unspecified
CPT/HCPCS: 36415; 80069

== ENCOUNTER 2025-07-11 11:52 | Outpatient (RCR) | payer OTHER, SELFPAY ==
[2025-07-11 13:17] LABS: Creatinine, Urine (random) 85.40 mg/dL (39.00-259.00); Protein, Urine (Random) 23.8 mg/dL (0.0-12.0); Protein:Creat Ratio 279 mg/g CRE (0-200)
== END 2025-07-19 18:00 | disposition home or self-care (01) ==
LOC: LAB 11:52
PROVIDERS: PCP Family Medicine; Referring Provider Internal Medicine Nephrology; Visit Provider Internal Medicine Nephrology
DX: R80.9 Proteinuria, unspecified (principal)
CPT/HCPCS: 82570; 84156